=== PATIENT | male | born 1930 | race Native Hawaiian/Other Pacific Islander ===

== ENCOUNTER 2018-03-11 12:11 | Emergency (ER) | payer MEDICARE, OTHER ==
[~2018-03-11] VITALS: Ht 167.6 cm; Wt 72.6 kg
--- NOTE | 2018-03-11 12:32 | NUR ---
CALLED DR ANGELO VEGA ON THE PHONE WITH THE NURSE FROM THE FACILITY.
--- NOTE | 2018-03-11 13:43 | NUR ---
CALLED [facility] FOR TRANSPORT ETA OF [id number] WAS GIVEN. TRIP#[id number]
--- NOTE | 2018-03-11 14:14 | NUR ---
REPORT GIVEN TO [facility] FOR TRANSPORT
[2018-03-11 17:38] VITALS: BP 138/68
== END 2018-03-11 17:39 | disposition home or self-care (01) ==
LOC: ER 12:14
DX: S00.03XA Contusion of scalp, initial encounter (principal); R55 Syncope and collapse; Z88.6 Allergy status to analgesic agent; W05.0XXA Fall from non-moving wheelchair, initial encounter; Y93.89 Activity, other specified; Y92.89 Other specified places as the place of occurrence of the external cause; Y99.8 Other external cause status
CPT/HCPCS: 70450; 72125; 99284; A4606; Z7610